=== PATIENT | male | born 1995 | race African-American/Black ===

== ENCOUNTER 2022-02-24 13:18 | Inpatient (IN) | payer OTHER, MEDICAID, SELFPAY ==
--- NOTE | ~2022-02-24 | MR_ITS ---
EXAMINATION: MR lumbar spine wo/w con DATE: 02/27/2022 13:14 INDICATION: Weakness. TECHNIQUE: Magnetic resonance imaging (MRI) of the lumbar spine was performed without and with 15 mL MultiHance intravenous contrast. COMPARISON: Lumbar spine CT 02/24/2022 FINDINGS: There is 9 degrees levocurvature of lumbar spine. Vertebral body heights and intervertebral disc heights are normal. The distal spinal cord signal intensity is normal. The conus medullaris is at L1. There is widespread increased T2-weighted signal intensity and contrast enhancement in the mus culature with edema around the muscles. The following disc levels are specifically discussed: L1-L2 through L3-L4: The disc does not extend beyond the endplate margin. There is no facet joint ost eoarthritis. There is no neural foraminal stenosis. There is no central canal stenosis. L4-L5: The disc does not extend beyond the endplate margin. There is mild bilateral facet joint osteo arthritis. There is no neural foraminal stenosis. There is no central canal stenosis. L5-S1: The disc does not extend beyond the endplate margin. There is mild bilateral facet joint osteo arthritis. There is no neural foraminal stenosis. There is no central canal stenosis. IMPRESSION: 1. Widespread abnormal increased T2-weighted signal intensity and contrast enhancement in the muscula ture, consistent with rhabdomyolysis. Reviewed, dictated and finalized at location A. IMPRESSION: 1. Widespread abnormal increased T2-weighted signal intensity and contrast enha ncement in the musculature, consistent with rhabdomyolysis.
--- NOTE | ~2022-02-24 | XR_ITS ---
EXAMINATION: XR chest 2V DATE: 02/27/2022 13:19 INDICATION: Dysphagia. TECHNIQUE: Frontal and lateral views of the chest were obtained. COMPARISON: Chest 2 views 06/23/2019 FINDINGS: The chest demonstrates clear lungs without pneumonia, pleural effusion, or pneumothorax. Th e heart size is normal. IMPRESSION: 1. No acute cardiopulmonary disease. Reviewed, dictated and finalized at location A.
--- NOTE | ~2022-02-24 | US_ITS ---
EXAMINATION: US venous doppler [facility] DATE: 02/25/2022 09:42 INDICATION: Lower limb edema. TECHNIQUE: Grayscale ultrasound images without and with compression and Doppler ultrasound images of the bilateral lower extremity veins were obtained. COMPARISON: None. FINDINGS: The visualized portions of right common femoral vein, profunda (deep) femoral vein, femoral vein, pop liteal vein, peroneal veins, posterior tibial veins, and greater saphenous vein outflow are patent. The visualized portions of left common femoral vein, profunda femoral vein, femoral vein, popliteal v ein, peroneal veins, posterior tibial veins, and greater saphenous vein outflow are patent. IMPRESSION: 1. No deep venous thrombosis. Reviewed, dictated and finalized at location A.
--- NOTE | ~2022-02-24 | MR_ITS ---
EXAMINATION: MR brain/brain stem wo/w con DATE: 02/27/2022 13:14 INDICATION: Dysphagia. Weakness. TECHNIQUE: Magnetic resonance imaging (MRI) of the brain and brainstem was performed without and with 15 mL MultiHance intravenous contrast. COMPARISON: Head CT 06/23/2019 FINDINGS: There is no intracranial hemorrhage, acute infarction, or abnormal intracranial mass lesion . The ventricles are normal in size. There is mild mucosal thickening in the ethmoid sinuses. The orb its are normal. The mastoid air cells are normal. IMPRESSION: 1. Normal brain. Reviewed, dictated and finalized at location A. IMPRESSION: 1. Normal brain.
--- NOTE | ~2022-02-24 | XR_ITS ---
EXAMINATION: XR barium swallow modified DATE: 02/27/2022 09:40 INDICATION: Dysphagia TECHNIQUE: The patient was given barium-containing material of multiple consistencies to swallow by t lou speech pathologist while I performed fluoroscopy. Dose-area product was 0.665 Gy-cm2. FINDINGS: Oral Stage: Delayed oral transit time Pharyngeal Phase: Reduced laryngeal elevation, reduced tongue base retraction Mild vallecular, piriform sinus and pharyngeal wall residue Laryngeal penetration with all consistencies; no aspiration Cervical/Esophageal Stage: Within functional limits IMPRESSION: Modified esophagram findings as above. Please refer to the speech therapy report for spec ific recommendations. Reviewed, dictated and finalized at Location A. Reviewed, dictated and finalized at location A. IMPRESSION: Modified esophagram findings as above. Please refer to the speech t herapy report for specific recommendations.
--- NOTE | ~2022-02-24 | CT_ITS ---
EXAMINATION: CT cervical spine wo con DATE: 02/24/2022 18:10 INDICATION: Ataxia. TECHNIQUE: Computed tomography (CT) of the cervical spine was performed without intravenous contrast. The dose-length product was 388 mGy-cm. Automated exposure control and iterative reconstruction tech [employer] were employed. COMPARISON: None FINDINGS: Vertebral body heights are maintained. Odontoid process within normal limits. There is norm al cervical alignment. Craniovertebral junction is normal. No significant spinal stenosis. No signifi cant paraspinal soft tissue abnormality. Lung apices are normal. IMPRESSION: 1. No significant abnormality of the cervical spine. Reviewed, dictated and finalized at location A.
--- NOTE | ~2022-02-24 | CT_ITS ---
EXAMINATION: CTA chest PE protocol DATE: 02/25/2022 12:34 INDICATION: Tachycardia TECHNIQUE: Computed tomography angiography (CTA) of the chest was performed with 100 mL Omnipaque-350 intravenous contrast timed to evaluate the pulmonary arteries. Coronal maximum intensity projection 3D-reconstructions were created by the technologist. Automated exposure control and iterative reconst ruction technique were employed. Exam dose: 262.70 mGy-cm total exam DLP. COMPARISON: 06/23/2019 2 view chest FINDINGS: There is diagnostic contrast enhancement of the pulmonary arteries and no apparent pulmonar y embolism. No thoracic aortic aneurysm or dissection. Normal heart size. No pericardial or pleural effusion. No pulmonary infiltrate or consolidation or pulmonary mass lesion. The tracheobronchial tree is paten t. Included skeletal structures are unremarkable. IMPRESSION: No evidence of pulmonary embolism; negative examination Reviewed, dictated and finalized at Location A. Reviewed, dictated and finalized at location A.
--- NOTE | ~2022-02-24 | US_ITS ---
EXAMINATION: US venous doppler [facility] DATE: 02/25/2022 09:42 INDICATION: Upper limb edema. TECHNIQUE: Grayscale ultrasound images without and with compression and Doppler ultrasound images of the bilateral upper extremity veins were obtained. COMPARISON: None. FINDINGS: The visualized portions of the right internal jugular vein, subclavian vein, axillary vein, brachial veins, cephalic vein, radial vein, and ulnar vein are patent. There is thrombus in a branch of right basilic vein. The visualized portions of the left internal jugular vein, subclavian vein, axillary vein, brachial v eins, basilic vein, cephalic vein, radial vein, and ulnar vein are patent. IMPRESSION: 1. No deep venous thrombosis. 2. Superficial vein thrombosis involving a branch of right basilic vein. Reviewed, dictated and finalized at location A.
--- NOTE | ~2022-02-24 | CT_ITS ---
EXAMINATION: CT thoracic lumbar wo con DATE: 02/24/2022 18:10 INDICATION: Ataxia. TECHNIQUE: Computed tomography (CT) of the thoracic and lumbar spine was performed without intravenou s contrast. The dose-length product was 1920.70 mGy-cm. Automated exposure control and iterative kiesha nstruction technique were employed. COMPARISON: None FINDINGS: Thoracic spine: There is mild dextrocurvature of the thoracic spine. Vertebral body are maintained. N o significant disc narrowing. No fracture or traumatic malalignment. No significant spinal stenosis. Visualized lung parenchyma is unremarkable. Surrounding osseous structures are unremarkable. No billy asher soft tissue abnormality. Lumbar spine: There is minimal disc bulging at L4-5 and L5-S1 without significant neural foraminal or central canal stenosis. There is mild disc narrowing at L5-S1. Vertebral body heights are maintained. No fracture or traumatic malalignment. No abnormal epidural fluid collections are identified to suggest epidural abscess. Psoas margins are normal. There is abnormal fluid anterior to the sacrum and coccyx in the p resacral space of uncertain origin. IMPRESSION: 1. Moderate fluid in the presacral space of uncertain origin. 2: Mild degenerative disc disease of the lower lumbar spine. 3: No acute abnormality of the thoracic or lumbar spine. No evidence for epidural abscess. Consider follow-up correlation with MRI with contrast. Reviewed, dictated and finalized at location A. IMPRESSION: 1. Moderate fluid in the presacral space of uncertain origin. 2: Mild degenerative disc disease of the lower lumbar spine. 3: No acute abnormality of the thoracic or lumbar spine. No evidence for epidu ral abscess. Consider follow-up correlation with MRI with contrast.
[2022-02-24 13:31] VITALS: BP 134/77; PULSE 119; RESP 16; TEMP 36.4; O2SAT 99
[2022-02-24 15:00] LABS: Hematocrit 44.1 % (42.0-52.0); Hemoglobin 14.6 g/dL (14.0-18.0); Mean Corpuscular HGB Conc 33.1 g/dl (32-36); Mean Corpuscular Hemoglobin 29.2 pg (26-34); Mean Corpuscular Volume 88.2 fl (80-100); Mean Platelet Volume 9.4 fl (7.4-10.4); Platelet Count Result 381 k/mm3 (150-375); Red Cell Distribution Width 13.4 % (11.5-14.5); White Blood Count 23.2 K/mm3 (4.5-10.0)
[2022-02-24 15:06] LABS: Appearance Urine Clear (Clear); Bilirubin Urine Negative (Negative); Blood Urine Trace-lysed (Negative); Color Urine Yellow (Yellow); Glucose Urine UA Negative (Negative); Ketones Urine Negative (Negative); Leukocyte Esterase Ur Negative LEU/UL (Negative); Nitrate Urine Negative (Negative); Protein Urine 1+ mg/dL (Negative)
[2022-02-24 15:19] LABS: Amphetamine Screen Urine Negative (Negative); Barbiturate Screen Urine Negative (Negative); Benzodiazepines Screen Urine Negative (Negative); Cannabinoid Screen Urine Positive (Negative); Cocaine Screen Urine Negative (Negative); Methadone Screen Urine Negative (Negative); Opiate Screen Urine Negative (Negative); Phencyclidine Screen Urine Negative (Negative)
[2022-02-24 15:22] LABS: WBC Urine 0-3 /hpf
[2022-02-24 15:23] LABS: Add Urine Microscopic? YES
[2022-02-24 15:34] LABS: Band Neutrophils Percent 1 % (0-6); Lymphocytes Absolute Manual 1.39 K/mm3 (1.1-4.5); Monocytes Absolute Manual 1.85 K/mm3 (0.1-0.90); Monocytes Percent Manual 8 % (3-9); Neutrophils Absolute Manual 19.95 K/mm3 (1.3-6.7); Neutrophils Percent Manual 85 % (46-73); Total Cells Counted 100
[2022-02-24 15:35] LABS: Atypical Lymphocytes Present
[2022-02-24 15:50] LABS: Alanine Aminotransferase 533 U/L (6-50); Albumin Level 3.4 g/dL (3.5-5.1); Alkaline Phosphatase 96 U/L (38-126); Anion Gap 4 mmol/L (8-16); Bilirubin,Total 0.5 mg/dL (0.2-1.3); Blood Urea Nitrogen 18 mg/dL (9-20); CRP 3.3 mg/dL (<1.0); Calcium 8.1 mg/dL (8.4-10.2); Carbon Dioxide 30 mmol/L (22-30); Chloride 93 mmol/L (98-107); Estimated CRCL calculation 122 ml/min; Estimated Glomerular Filt Rate > 60; Glucose 109 mg/dL (65-110); Potassium 4.8 mmol/L (3.4-5.0); Sodium 127 mmol/L (137-145)
[2022-02-24 16:31] LABS: Aspartate Amino Transferase 1397 U/L (17-59); Creatine Kinase > 16000 U/L (55-170)
--- NOTE | 2022-02-24 16:40 | ED.GENADULT ---
HPI - General Adult General Chief complaint: Extremity Injury, Lower Stated complaint: swelling to legs, headaches, itching Time Seen by Provider: 02/24/22 14:16 History of Present Illness HPI narrative: 26-year-old male presents emergency room secondary to about a 2-week history of progressive weakness and swelling to both of his lower extremities. Patient states he started having some pain in his lower back about 4 to 5 weeks ago. 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 He is no longer at that job. However his acute symptoms of the weakness and swelling to his leg just been going on for last 2 weeks. He did travel to [facility] in October but had no problems in this all started several months later. He has been seen at a couple of ERs and urgent cares thus far with no definitive diagnosis. Someone put him on some nonsteroidal anti-inflammatory medication as well as some prednisone. Patient is also unable to get an erection for about the last 2 to 3 weeks. He has had progressive swelling to his legs and his very ataxic and has pain when he tries to walk. Also complaining of some mild pain into his neck as well. He denies any IV drugs. He does smoke some occasional marijuana. He had no definitive chills or fevers. Related Data Home Medications Medication Instructions Recorded Confirmed prednisone 20 mg tablet tablet 02/24/22 tramadol 02/24/22 Allergies Allergy/AdvReac Type Severity Reaction Status Date / Time No Known Allergies Allergy Verified 02/24/22 13:33 Review of Systems Review of Systems: CONSTITUTIONAL: Denies fever, chills, or sweats. EYES: Denies visual changes, redness, or discharge. ENT: Denies rhinorrhea, congestion, sore throat, or otalgia. CARDIOVASCULAR: Denies chest pain, palpitations, or edema. RESPIRATORY: Denies cough or dyspnea. GASTROINTESTINAL: Denies abdominal pain, nausea, vomiting, or diarrhea. GENITOURINARY: Denies dysuria or hematuria. SKIN: Denies rash or itching. MUSCULOSKELETAL: Swelling to his lower extremities and difficulty with ambulation NEUROLOGIC: Denies headache, numbness. Occultly with ambulating. PSYCHIATRIC: Denies anxiety or depression. FORMERLY [facility], [facility]–1983 Past Medical History Medical History (Updated 02/24/22 @ 18:34 by Isidro Rodriguez DO) No active medical problems Social History Social History (Updated 02/24/22 @ 17:05 by Isidro Rodriguez DO) Alcohol use details: He used to drink occasionally on weekends but not even consistently then. He has had no alcohol in the last 3 to 4 weeks. He was never heavy drinker. Living arrangements: with family Occupation/Education: unemployed Gender identity (if verbalized by the patient): Male Exam Narrative: APPEARANCE: Well appearing, no pain or distress, well-nourished. Head normocephalic and atraumatic. EYES: PERRLA/EOMI, conjunctivae very clear. NOSE: Normal with no drainage EARS:TMS clear Nataly Lima, with good light reflex. THROAT: Pharynx clear, no exudate. NECK: Supple. No adenopathy, no masses. Some mild tenderness to palpation in the lower cervical region. RESPIRATORY: Airway patent, respirations nonlabored. Clear to auscultation bilaterally, no rales, rhonchi, wheezing. CARDIOVASCULAR: Regular rate and rhythm without murmurs, rubs, or gallops. ABDOMINAL: Soft, nontender, nondistended, no hepatosplenomegaly Musculoskeletal: Moves all extremities. Strength/ROM intact, No calf tenderness. +2 to 3/4 edema to both lower extremities NEURO: Alert. Cranial nerves II through XII intact. Weakness to his lower extremities and ataxic when he tries to walk. SKIN:: Warm, dry. Normal Color PSYCHIATRIC: Normal affect/mood, normal interaction Course Course Emergency Course: Patient has significant laboratory abnormalities. There is concerned that maybe has a spinal cord issues and subsequently I called U at 1650 and discussed with glenda
[2022-02-24] MEDS: SODIUM CHLORIDE 0.9% IV 1,000 ML 999 ML IV CONT (16:49)
--- NOTE | 2022-02-24 17:30 | PM.IMHP ---
H&P: HPI History of Present Illness Date/Time: 02/24/22 17:30 Chief Complaint: Weak, muscle pains, extremity swelling. Narrative: This is a very pleasant and previously healthy 26-year-old male who presented to the emergency department via private vehicle from home with multiple complaints to include weakness, muscle pain, and swelling of the extremities. About 4 or 5 weeks ago he started having some pain in his lower back which he thought was likely due to a muscle strain from doing heavy lifting and turning at his work in a [employer] plant. He has since left that job and has not worked there for at least 3 weeks. His back pain has resolved though over the past 2 weeks he has developed other symptoms including swelling in his upper and lower extremities, muscle aches, and generalized weakness. He has been seen at 2 different hospitals in the last 2 weeks for his symptoms and he was prescribed prescriptions for his symptoms to include gabapentin, cyclobenzaprine, methocarbamol, and prednisone. With further questioning, the prednisone was reportedly prescribed for a pruritic rash on his right arm which has improved. He stopped taking the prednisone 2 days early as it was keeping him awake. Unfortunately his symptoms continue to get worse and in fact he has been staying at his grandmother's house over the past 1 week because he is unable to stay alone. He requires help to even sit up and to stand and walk due to excruciating muscle pain and to some extent weakness as well. His CK was markedly elevated at greater than 16,000 with concomitant elevation in AST and ALT and he is being admitted for further treatment and evaluation of rhabdomyolysis. As above, his previous job was in a hot facility doing manual labor though he has not been at that job for well over 3 weeks. He lifts weights 3 times a week for not more than an hour a day and he has not been exerting himself more than usual. He has not had any recent travel, the last time he was out of town was back in October when he went to [place]. He is unaware if he has had any recent mosquito or tick bites. He has no history of eczema and has not noticed any significant rash aside from that on the right forearm though on exam he had some hyperpigmented areas on the trunk where he admitted to scratching due to pruritus. He has not had any recent illnesses, exposure, or trauma. No personal or family history of rhabdomyolysis, muscular dystrophies, myositis, autoimmune diseases, or the like. He uses cannabis on occasion but denies other substance use including chnu-[id number] supplementation, anabolic steroids, high-dose caffeine, etc.. Review of Systems Review of Systems: Twelve systems were reviewed. No fever, chills, or sweats. He denies sinus congestion and sore throat. No headache or neck ache. No chest pain or shortness of breath. No cough. No nausea, vomiting, or diarrhea. No dysuria or hematuria. No bowel or bladder dysfunction. No saddle anesthesia. No current back pain. He has not been able to get an erection for approximately 3 weeks. Except as documented, all other systems were reviewed and are negative. [facility] Past Medical History Medical History (Updated 02/24/22 @ 22:34 by Airam Beltran PA-C) Healthy adult male Surgical History Surgical History (Updated 02/24/22 @ 22:25 by Airam Beltran PA-C) No history of previous surgery Family History Family History Grandparent Chronic obstructive pulmonary disease Social History Social History (Updated 02/24/22 @ 22:27 by Airam Beltran PA-C) Social History: Surrogate decision maker: Sherri Alvarez, grandmother. Code status: Full code. Smoking status: Never smoker Alcohol intake: never Alcohol use details: He used to drink occasionally on weekends but not even consistently then. He has had no alcohol in the last 3 to 4 weeks. He was never heavy drinker. Substance use
[2022-02-24] MEDS: SODIUM BICARBONATE 8.4% 100 MEQ in DEXTROSE 5% 1,000 ML 1,000 ML 50 MEQ IV CONT (18:38)
[2022-02-24 18:40] LABS: Lactic Acid Reflex 1.5 mmol/L (0.7-2.0)
[2022-02-24 18:45] VITALS: BP 145/75; PULSE 100; RESP 18; O2SAT 98
[2022-02-24 18:59] LABS: D Dimer 8.54 ug/mL (<0.48)
[2022-02-24 19:29] VITALS: BP 124/64; PULSE 102; RESP 18; O2SAT 99
[2022-02-24 21:38] VITALS: BMI 26.0
[2022-02-24 22:00] VITALS: BP 130/77; PULSE 120; RESP 18; TEMP 37.1; O2SAT 100
[2022-02-24 22:17] LABS: Erythrocyte Sedimentation Rate 4 mm/hr (0-20)
[2022-02-24 22:18] LABS: Hepatitis B Surface Antigen Negative (Negative)
--- NOTE | 2022-02-24 22:19 | ADMGEN ---
This patient, Shemar Ga, was admitted to Medical Room 346-01. Patient/family oriented to hospital policies and general routines including ID bracelet, bed and alarms, visiting hours, pain management, procedures, bathroom and other care routines, personal items, smoking policy, room service/diet, and visiting hours. Information on how to activate the Rapid Response Team has been discussed. Patient/Family are encouraged to report perceived risks to care and to ask questions if they do not understand what they are told or what they should do.
[2022-02-24 22:22] LABS: Anion Gap 3 mmol/L (8-16); Blood Urea Nitrogen 17 mg/dL (9-20); Calcium 8.1 mg/dL (8.4-10.2); Carbon Dioxide 31 mmol/L (22-30); Chloride 93 mmol/L (98-107); Creatine Kinase > 16000 U/L (55-170); Estimated CRCL calculation 140 ml/min; Estimated Glomerular Filt Rate > 60; Glucose 120 mg/dL (65-110); Lactate Dehydrogenase 4809 U/L (313-618); Potassium 4.2 mmol/L (3.4-5.0); Sodium 127 mmol/L (137-145)
[2022-02-24 22:23] LABS: HAV RESULT Negative (Negative); Hepatitis B Core IgM Result Negative (Negative)
[2022-02-24 22:35] LABS: Hepatitis C Virus Antibody Negative (Negative)
[2022-02-24 22:38] VITALS: O2SAT 96
[2022-02-24] MEDS: SODIUM CHLORIDE 0.9% IV 1,000 ML 200 ML IV CONT (23:22)
[2022-02-25 00:40] LABS: Creatinine Urine 112.3 mg/dL
[2022-02-25 00:43] LABS: Sodium Urine Random 9 meq/L
[2022-02-25] MEDS: SODIUM CHLORIDE 0.9% IV 1,000 ML 200 ML IV CONT ×3 (05:06→23:48)
[2022-02-25 05:53] LABS: Basophils Absolute Auto 0.1 K/mm3 (0.0-0.1); Basophils Percent Auto 0.4 % (0.2-1.2); Eosinophils Absolute Auto 0.4 K/mm3 (0-0.3); Eosinophils Percent Auto 2.6 % (0-4.4); Hematocrit 34.5 % (42.0-52.0); Hemoglobin 11.5 g/dL (14.0-18.0); Immature Granulocyte Absolute 0.23 K/mm3 (0.00-0.031); Immature Granulocyte Percent A 1.7 % (0-0.5); Lymphocytes Absolute Auto 1.48 K/mm3 (0.9-3.2); Lymphocytes Percent Auto 10.6 % (18.3-44.2); Mean Corpuscular HGB Conc 33.3 g/dl (32-36); Mean Corpuscular Hemoglobin 29.3 pg (26-34); Mean Platelet Volume 9.5 fl (7.4-10.4); Monocytes Absolute Auto 1.6 K/mm3 (0.1-0.6); Monocytes Percent Auto 11.6 % (2.6-8.5); Neutrophils Absolute Auto 10.2 K/mm3 (1.3-6.7); Neutrophils Percent Auto 73.1 % (45.5-73.1); Platelet Count Result 324 k/mm3 (150-375); Red Blood Count 3.92 M/mm3 (4.6-6.20); Red Cell Distribution Width 13.2 % (11.5-14.5); White Blood Count 13.9 K/mm3 (4.5-10.0)
[2022-02-25 06:00] VITALS: BP 110/49; PULSE 119; RESP 18; TEMP 37.2; O2SAT 97
[2022-02-25 06:08] LABS: Alanine Aminotransferase 389 U/L (6-50); Albumin Level 2.6 g/dL (3.5-5.1); Alkaline Phosphatase 72 U/L (38-126); Anion Gap 2 mmol/L (8-16); Bilirubin,Total 0.3 mg/dL (0.2-1.3); Blood Urea Nitrogen 22 mg/dL (9-20); Calcium 7.3 mg/dL (8.4-10.2); Carbon Dioxide 28 mmol/L (22-30); Chloride 98 mmol/L (98-107); Estimated CRCL calculation 140 ml/min; Estimated Glomerular Filt Rate > 60; Glucose 101 mg/dL (65-110); Phosphorus 4.1 mg/dL (2.5-4.5); Potassium 3.7 mmol/L (3.4-5.0); Sodium 128 mmol/L (137-145)
[2022-02-25 06:56] LABS: Creatine Kinase > 16000 U/L (55-170)
[2022-02-25 08:14] LABS: Aspartate Amino Transferase 1211 U/L (17-59)
[2022-02-25 13:05] LABS: HIV 1/2 Ab P24 Ag Result Negative (Negative)
[2022-02-25 14:13] VITALS: BP 130/71; PULSE 119; RESP 18; TEMP 36.8; O2SAT 99
[2022-02-25 14:51] VITALS: O2SAT 98
[2022-02-25] MEDS: diphenhydrAMINE HCl INJ 50 MG/ML VIAL 25 MG IV PUSH (15:38)
--- NOTE | 2022-02-25 16:19 | PM.IMPN ---
Progress Note: A&P Assessment and Plan (1) Rhabdomyolysis: Code(s): M62.82 - Rhabdomyolysis Status: Acute Assessment and Plan: Precipitating etiology not entirely clear. 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 He has not had any direct trauma, significant heat exposure, or illnesses. He is on no medications at home on a consistent basis and he denies cxox-ask-cruqbqg supplementation, illicit substance use aside from marijuana smoking. No known personal or family history of mitochondrial or muscle disorders, rhabdomyolysis, or the like. Differential includes rhabdomyolysis, Guillain Galvin, and inflammatory myopathy. CRUZ pending CK persistently elevated after fluid resuscitation at> 16,000. AST 1211 ALT 389 LDH 4809 CRP 3.3 Ca 7.3 D-Dimer 8.54. HIV negative PRP pending BUN/Cr 22/0.6. Pt is producing clear yellow urine. Urine Myoglobin, osmolality, pending. FeNa 9 (2) Leukocytosis: Code(s): D72.829 - Elevated white blood cell count, unspecified Status: Acute Assessment and Plan: He gives no history to suggest underlying infection, likely these are elevated due to recent steroid use. Downtrending to 13.9 today. Patient remains afebrile, no concerning history or physical exam findings to suggest endocarditis. Will check monospot test to rule out infectious [place]. (3) Transaminitis: Code(s): R74.01 - Elevation of levels of liver transaminase levels Status: Acute Assessment and Plan: Secondary to rhabdomyolysis. Hepatitis panel negative. Abdominal exam normal. (4) Hyponatremia: Code(s): E87.1 - Hypo-osmolality and hyponatremia Status: Acute Assessment and Plan: TSH 1.29 Sodium 128 today. Continuing NS IVF resuscitation. Continue to monitory. FeNa 9 (5) Muscle weakness: Code(s): M62.81 - Muscle weakness (generalized) Status: Acute Assessment and Plan: Weakness is most evident in hip flexors. He had a back injury over a month ago though symptoms have resolved and his neurologic exam is otherwise unremarkable. Again this is concerning for possible inflammatory myopathy though it is difficult to say whether not the weakness is due to the excruciating pain he feels when flexing the muscles. Initiate fall precautions. Differential includes rhabdo vs. guillain barre vs inflammatory myositis. Consider muscle biopsy and rheumatology consultation. CRUZ pending. (6) Rash: Code(s): R21 - Rash and other nonspecific skin eruption Status: Acute Assessment and Plan: Patient with diffuse rash as noted on physical exam with diffuse pruritis. Benadryl and famotidine given PRN for itching. CRUZ pending. (7) Tachycardia: Code(s): R00.0 - Tachycardia, unspecified Status: Acute Assessment and Plan: Patient has been tachycardic in the low 1teens during this admission. Venous duplex found superficial vein thrombosis involving a branch of right basilic vein. No lower extremity DVT noted. Patient saturating well on RA at this time. CTA chest showed no PE. Plan Pending CRUZ, SCDs on hold due to pain, Lovenox on hold due to possible need for muscle biopsy in near future. I discussed this case with my collaborating physician, Dr. Peters, and plan was developed in conjunction with this consultation. Subjective Date/time seen: 02/25/22 16:19 Pleasant 26 year old male with no significant past medical history who presents for 3-4 weeks of rash, pruritis and progressive muscle aches and weakness. 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 He denies excessive working out, trauma, or prolonged immobility, other than what is happening with his mu
[2022-02-25] MEDS: CALCIUM CARBONATE (OSCAL) 500 MG TABLET PO (17:19)
[2022-02-25 18:11] LABS: Monoscreen Negative (Negative); Negative Monotest Control Negative (Negative); Positive Monotest Control Positive (Positive)
[2022-02-25 18:39] LABS: Creatine Kinase > 16000 U/L (55-170)
[2022-02-25] MEDS: FAMOTIDINE 20 MG/2 ML VIAL IV PUSH (20:29)
[2022-02-25 21:36] VITALS: BP 124/64; PULSE 119; RESP 16; TEMP 36.8; O2SAT 100
[2022-02-26] MEDS: SODIUM CHLORIDE 0.9% IV 1,000 ML 200 ML IV CONT ×5 (01:10→21:08)
[2022-02-26] MEDS: diphenhydrAMINE HCl INJ 50 MG/ML VIAL 25 MG IV PUSH (02:08)
[2022-02-26 05:05] VITALS: BP 124/58; PULSE 120; RESP 16; TEMP 37.2; O2SAT 100
[2022-02-26 05:40] LABS: Basophils Percent Auto 0.3 % (0.2-1.2); Eosinophils Absolute Auto 0.5 K/mm3 (0-0.3); Eosinophils Percent Auto 4.2 % (0-4.4); Hemoglobin 11.4 g/dL (14.0-18.0); Immature Granulocyte Absolute 0.14 K/mm3 (0.00-0.031); Immature Granulocyte Percent A 1.1 % (0-0.5); Lymphocytes Absolute Auto 1.32 K/mm3 (0.9-3.2); Lymphocytes Percent Auto 10.5 % (18.3-44.2); Mean Corpuscular HGB Conc 33.5 g/dl (32-36); Mean Corpuscular Hemoglobin 29.4 pg (26-34); Mean Corpuscular Volume 87.6 fl (80-100); Mean Platelet Volume 9.2 fl (7.4-10.4); Monocytes Absolute Auto 1.5 K/mm3 (0.1-0.6); Monocytes Percent Auto 12.3 % (2.6-8.5); Neutrophils Percent Auto 71.6 % (45.5-73.1); Platelet Count Result 301 k/mm3 (150-375); Red Blood Count 3.88 M/mm3 (4.6-6.20); Red Cell Distribution Width 13.5 % (11.5-14.5); White Blood Count 12.6 K/mm3 (4.5-10.0)
[2022-02-26 06:02] LABS: Alanine Aminotransferase 320 U/L (6-50); Albumin Level 2.4 g/dL (3.5-5.1); Alkaline Phosphatase 66 U/L (38-126); Anion Gap -2 mmol/L (8-16); Bilirubin,Total 0.4 mg/dL (0.2-1.3); Blood Urea Nitrogen 13 mg/dL (9-20); Calcium 7.3 mg/dL (8.4-10.2); Carbon Dioxide 29 mmol/L (22-30); Chloride 104 mmol/L (98-107); Estimated CRCL calculation 140 ml/min; Estimated Glomerular Filt Rate > 60; Glucose 104 mg/dL (65-110); Potassium 3.7 mmol/L (3.4-5.0); Sodium 131 mmol/L (137-145)
[2022-02-26 07:38] LABS: Aspartate Amino Transferase 952 U/L (17-59)
[2022-02-26 07:51] LABS: Rapid Plasma Reagin Non-Reactive (NonReactive)
[2022-02-26 08:09] VITALS: BP 149/65; PULSE 125; RESP 18; TEMP 36.8; O2SAT 100
[2022-02-26] MEDS: FAMOTIDINE 20 MG/2 ML VIAL IV PUSH ×2 (08:33→21:07)
--- NOTE | 2022-02-26 11:24 | PM.IMPN ---
Progress Note: A&P Assessment and Plan (1) Dysphagia: Code(s): R13.10 - Dysphagia, unspecified Status: Acute Assessment and Plan: Patient with acute onset of difficulty swallowing. Consider globus since he was able to consume the majority of his cereal. He is tender anteriorly in the neck but no painful swallowing to suggest a esophagitis. Will continue the Pepcid. Blood speech therapy evaluate the patient. No erythema noted but will check rapid strep swab. (2) Rhabdomyolysis: Code(s): M62.82 - Rhabdomyolysis Status: Acute Assessment and Plan: Patient presents with complaints of weakness and muscle pain and found to have rhabdomyolysis. Etiology is unclear but consider related to weightlifting and/or working at the [employer] and/or related to recent medications. Suspect probably a combination of events. No trauma, significant illness, tick bites, known toxin exposure, or other specific exposures to explain the etiology of his rhabdomyolysis. Total CK greater than 16 K. liver enzymes are trending downward. Sodium improving which also speaks to the fact that his CK probably is trending downward. Continue IV fluids. Will consider Lasix tomorrow. (3) Leukocytosis: Code(s): D72.829 - Elevated white blood cell count, unspecified Status: Acute Assessment and Plan: White cell count was 23K on admission. He he had been using steroids recently which probably explains some of this. On repeat, white count has trended downward. He is not on antibiotics. Will continue to monitor. There is no evidence of infectious process. (4) Transaminitis: Code(s): R74.01 - Elevation of levels of liver transaminase levels Status: Acute Assessment and Plan: Secondary to rhabdomyolysis. Hepatitis panel negative. Abdominal exam normal. Levels are trending downward. (5) Hyponatremia: Code(s): E87.1 - Hypo-osmolality and hyponatremia Status: Acute Assessment and Plan: Na 127 on admission. Probably osmotic related to the elevated creatinine kinase. He has been started on IV fluids as mentioned above. Sodium is slowly climbing related to the IV fluids but also as his creatinine kinase trends downward. This should continue to correct (6) Muscle weakness: Code(s): M62.81 - Muscle weakness (generalized) Status: Acute Assessment and Plan: Patient with diffuse weakness but worse than his hip flexors. He had a back injury over a month ago though symptoms have resolved. Patient is able to walk to the bathroom with only using the IV pole for support. Encouraged him to be out of bed much as possible. This is felt all related to his rhabdomyolysis. Inflammatory myopathy is consideration although does not cause this type of significant elevation of his creatinine kinase. Continue to follow. (7) Rash: Code(s): R21 - Rash and other nonspecific skin eruption Status: Acute Assessment and Plan: Patient with diffuse rash as noted on physical exam with diffuse pruritis. Benadryl given PRN for itching. Continue Pepcid as well. Lupus remains on the differential. CRUZ pending. (8) Tachycardia: Code(s): R00.0 - Tachycardia, unspecified Status: Acute Assessment and Plan: Patient has been tachycardic 110-120 since admission. Venous duplex found superficial vein thrombosis involving a branch of right basilic vein. No lower extremity DVT noted. CTA chest showed no PE. TSH is normal. Continue to monitor for now. Plan DVT prophylaxis: SCDs Code status: Full Subjective Date/time seen: 02/26/22 11:24 Interval history: 26yo healthy male here for muscle aches found to have rhabdomyolysis. Patient had dry mouth today. He was able to eat a bowl of cereal but toward the end he had trouble swallowing. He then went to eat pancakes and had trouble swallowing this as well. He is
[2022-02-26 14:00] VITALS: BP 121/55; PULSE 119; RESP 18; TEMP 36.9; O2SAT 98
[2022-02-26 15:26] VITALS: O2SAT 98
--- NOTE | 2022-02-26 16:32 | PCSTNOTE ---
Please refer to the Bedside Swallow Evaluation in the EMR. Please note, silent aspiration cannot be ruled out at bedside.
[2022-02-26 19:28] VITALS: PULSE 119; RESP 18; O2SAT 98
[2022-02-26 19:52] LABS: Creatine Kinase > 16000 U/L (55-170)
[2022-02-26 20:17] VITALS: BP 130/66; PULSE 119; RESP 18; TEMP 36.8; O2SAT 99
[2022-02-27] MEDS: SODIUM CHLORIDE 0.9% IV 1,000 ML 200 ML IV CONT ×4 (02:17→20:35)
[2022-02-27 04:44] VITALS: BP 121/62; PULSE 111; RESP 18; TEMP 36.7; O2SAT 98
[2022-02-27 06:22] LABS: Basophils Percent Auto 0.3 % (0.2-1.2); Eosinophils Absolute Auto 0.8 K/mm3 (0-0.3); Eosinophils Percent Auto 6.4 % (0-4.4); Hematocrit 33.9 % (42.0-52.0); Hemoglobin 11.3 g/dL (14.0-18.0); Immature Granulocyte Absolute 0.16 K/mm3 (0.00-0.031); Immature Granulocyte Percent A 1.2 % (0-0.5); Lymphocytes Absolute Auto 1.29 K/mm3 (0.9-3.2); Lymphocytes Percent Auto 9.9 % (18.3-44.2); Mean Corpuscular HGB Conc 33.3 g/dl (32-36); Mean Corpuscular Hemoglobin 29.7 pg (26-34); Mean Platelet Volume 9.6 fl (7.4-10.4); Monocytes Absolute Auto 1.5 K/mm3 (0.1-0.6); Monocytes Percent Auto 11.1 % (2.6-8.5); Neutrophils Absolute Auto 9.3 K/mm3 (1.3-6.7); Neutrophils Percent Auto 71.1 % (45.5-73.1); Platelet Count Result 304 k/mm3 (150-375); Red Blood Count 3.81 M/mm3 (4.6-6.20); Red Cell Distribution Width 13.6 % (11.5-14.5)
[2022-02-27 06:55] LABS: Alanine Aminotransferase 294 U/L (6-50); Albumin Level 2.4 g/dL (3.5-5.1); Alkaline Phosphatase 63 U/L (38-126); Anion Gap 2 mmol/L (8-16); Bilirubin,Total 0.5 mg/dL (0.2-1.3); Blood Urea Nitrogen 9 mg/dL (9-20); Calcium 7.1 mg/dL (8.4-10.2); Carbon Dioxide 26 mmol/L (22-30); Chloride 106 mmol/L (98-107); Estimated CRCL calculation 140 ml/min; Estimated Glomerular Filt Rate > 60; Glucose 95 mg/dL (65-110); Potassium 3.8 mmol/L (3.4-5.0); Sodium 134 mmol/L (137-145)
[2022-02-27 06:58] LABS: Aspartate Amino Transferase 842 U/L (17-59); Creatine Kinase > 16000 U/L (55-170)
[2022-02-27] MEDS: FAMOTIDINE 20 MG/2 ML VIAL IV PUSH ×2 (08:43→20:35)
[2022-02-27] MEDS: FUROSEMIDE INJ 40 MG/4 ML VIAL IV PUSH ×2 (08:44→16:39)
[2022-02-27] MEDS: diphenhydrAMINE HCl INJ 50 MG/ML VIAL 25 MG IV PUSH (09:00)
--- NOTE | 2022-02-27 11:35 | PM.IMPN ---
Progress Note: A&P Assessment and Plan (1) Dysphagia: Code(s): R13.10 - Dysphagia, unspecified Status: Acute Assessment and Plan: Patient with acute onset of difficulty swallowing. Bedside with concern with recommendation of chin tuck; MBS ordered MBS showing reduced laryngeal elevation and reduced tongue retraction with laryngeal penetration but no aspiration. He did receive Benadryl dose prior to the procedure. Check Brain MRI. Neuro consult NPO for now. (2) Rhabdomyolysis: Code(s): M62.82 - Rhabdomyolysis Status: Acute Assessment and Plan: Patient presents with complaints of weakness and muscle pain and found to have rhabdomyolysis. CRP 3.3. LDH 4800. Lactic acid 1.5. Etiology unclear but consider weightlifting and/or working at the [employer] and/or related to recent medications. No trauma, significant illness, tick bites, known toxin exposure, or other specific exposures Was on IV fluids with bicarb but became too alkalotic; Just on NS IV fluids now Total CK >16K and unchanged AST/ALT elevated and are trending down. Continue IV fluids. Will add Lasix (3) Leukocytosis: Code(s): D72.829 - Elevated white blood cell count, unspecified Status: Acute Assessment and Plan: White cell count was 23K on admission. Probably related to steroid use Repeat WBC 13 now There is no evidence of infectious process. He is not on antibiotics. Will continue to monitor. (4) Transaminitis: Code(s): R74.01 - Elevation of levels of liver transaminase levels Status: Acute Assessment and Plan: Secondary to rhabdomyolysis. Hepatitis panel negative. Abdominal exam normal. Levels are trending downward. (5) Hyponatremia: Code(s): E87.1 - Hypo-osmolality and hyponatremia Status: Acute Assessment and Plan: Na 127 on admission. Probably osmotic related to the elevated creatinine kinase. He was started on IV fluids. Sodium improving related to the IV fluids but also as his creatinine kinase trends downward. (6) Muscle weakness: Code(s): M62.81 - Muscle weakness (generalized) Status: Acute Assessment and Plan: Patient with diffuse weakness but worse than his hip flexors. He had a back injury over a month ago though symptoms have resolved. Weak in bed but able to stand and walk CT Thoracic and lumbar showing moderate fluid in the presacral space, mild lumbar DDD. [place] related to his rhabdomyolysis. Will add Lumbar MR to assess fluid collection (7) Rash: Code(s): R21 - Rash and other nonspecific skin eruption Status: Acute Assessment and Plan: Patient with diffuse rash as noted on physical exam with diffuse pruritis. Benadryl given PRN for itching. Continue Pepcid as well. Lupus remains on the differential. CRUZ pending. Stop Bendaryl since may have contributed to his dysphagia (8) Tachycardia: Code(s): R00.0 - Tachycardia, unspecified Status: Acute Assessment and Plan: Patient has been tachycardic 110-120 since admission. D-dimer 8.5. LE venous doppler negative for DVT UE venous doppler negative for DVT but shows superficial vein thrombosis involving a branch of right basilic vein CTA chest negative for PE. No other concerning findings. TSH is normal. Continue to monitor for now. Plan DVT prophylaxis: Refusing SCDs; Add Lovenox Code status: Full Subjective Date/time seen: 02/27/22 11:35 Interval history: 26yo healthy male here for muscle aches found to have rhabdomyolysis. Slept well last night. Did complain of some mild sore throat last night. His legs feel more stiff today. Denies diplopia or any other eye complaints. Patient had modified barium swallows morning and was called by speech therapy who had concerns. Patient was somnolent for the procedure possibly related to the fact he received Benadryl at
--- NOTE | 2022-02-27 12:54 | PCSTNOTE ---
Please refer to the Modified Barium Swallow Evaluation in the EMR.
[2022-02-27] MEDS: ENOXAPARIN 40 MG/0.4 ML SYRINGE SUB-Q (13:53)
[2022-02-27 14:00] VITALS: BP 129/66; PULSE 110; RESP 18; TEMP 36.6; O2SAT 99
[2022-02-27 20:20] VITALS: BP 127/66; PULSE 111; RESP 18; TEMP 36.6; O2SAT 99
--- NOTE | 2022-02-28 | ECHO_ITS ---
Patient Info Name: Shemar Ga Age: 26 years : 1995 Gender: Male Ht: 65 in Wt: 163 lbs BSA: 1.86 m2 HR: 116 bpm BP: 140 / 72 mmHg Heart Rhythm: Sinus Rhythm, Tachycardia Exam Date: 02/28/2022 1:04 PM Exam Location: [facility] Patient Status: Inpatient Admit Date: 02/24/2022 Staff Ordering Physician: Titus Peters MD Welfare Specialist: Phuc Thurman, RUTH, RT Attending Provider: Reyna Deutsch PA-C Exam Type: CA echo doppler color flow Study Info Indications R00.0 - Tachycardia, unspecified Complete two-dimensional, color flow and Doppler transthoracic echocardiogram is performed. Strain analysis performed. Summary 1. Complete two-dimensional, color flow and Doppler transthoracic echocardiogram is performed. 2. Left ventricular chamber dimension is normal. 3. Left ventricular systolic function is hyperdynamic, estimated at >70%. 4. There is no increased left ventricular wall thickness. 5. The left ventricular diastolic function is normal. 6. Global longitudinal strain is mildly elevated at -17 %. 7. Right atrial chamber dimension is mildly enlarged. 8. There is no aortic valve stenosis. 9. There is no mitral valve regurgitation. 10. There is trace tricuspid valve regurgitation. 11. Mild pulmonary hypertension, estimated pulmonary arterial systolic pressure is 36 mmHg. Left Ventricle Left ventricular chamber dimension is normal. Left ventricular systolic function is hyperdynamic, estimated at >70%. There is no increased left ventricular wall thickness. The left ventricular diastolic function is normal. Global longitudinal strain is mildly elevated at -17 %. Right Ventricle Right ventricular chamber dimension is normal. Right ventricular systolic function is normal. Left Atria Left atrial chamber dimension is normal. Right Atria Right atrial chamber dimension is mildly enlarged. Aortic Valve The aortic valve is probable trileaflet. There is no aortic valve stenosis. There is no aortic valve regurgitation. Pulmonic Valve The pulmonic valve is not well visualized. Mitral Valve The mitral valve has normal leaflets. There is no mitral valve regurgitation. Tricuspid Valve The tricuspid valve leaflets are normal. There is trace tricuspid valve regurgitation. Mild pulmonary hypertension, estimated pulmonary arterial systolic pressure is 36 mmHg. Pericardium/Pleural The pericardium appears normal. There is no pericardial effusion. Inferior Vena Cava Normal inferior vena cava with >50% collapse upon inspiration consistent with normal right atrial pressure, 5 mmHg. Aorta The aortic root size at the sinus of Valsalva is normal. Left Ventricular Outflow Tract Name Value Normal LVOT 2D LVOT Diameter 2.1 cm LVOT Doppler LVOT Peak Gradient 6 mmHg LVOT Mean Gradient 3 mmHg LVOT VTI 20 cm LVOT VTI/AV VTI Ratio 1.0 LVOT Stroke Volume 69 ml LVOT CO 8.3 l/min LV
[2022-02-28] MEDS: SODIUM CHLORIDE 0.9% IV 1,000 ML 200 ML IV CONT ×3 (00:22→08:47)
[2022-02-28 05:36] VITALS: BP 140/72; PULSE 116; RESP 18; TEMP 36.6; O2SAT 99
[2022-02-28 05:54] LABS: Basophils Absolute Auto 0.1 K/mm3 (0.0-0.1); Basophils Percent Auto 0.5 % (0.2-1.2); Eosinophils Percent Auto 6.8 % (0-4.4); Hematocrit 36.6 % (42.0-52.0); Hemoglobin 12.1 g/dL (14.0-18.0); Immature Granulocyte Absolute 0.26 K/mm3 (0.00-0.031); Immature Granulocyte Percent A 1.8 % (0-0.5); Lymphocytes Absolute Auto 1.51 K/mm3 (0.9-3.2); Lymphocytes Percent Auto 10.2 % (18.3-44.2); Mean Corpuscular HGB Conc 33.1 g/dl (32-36); Mean Corpuscular Hemoglobin 29.3 pg (26-34); Mean Corpuscular Volume 88.6 fl (80-100); Mean Platelet Volume 9.2 fl (7.4-10.4); Monocytes Absolute Auto 1.8 K/mm3 (0.1-0.6); Monocytes Percent Auto 11.8 % (2.6-8.5); Neutrophils Absolute Auto 10.2 K/mm3 (1.3-6.7); Neutrophils Percent Auto 68.9 % (45.5-73.1); Platelet Count Result 345 k/mm3 (150-375); Red Blood Count 4.13 M/mm3 (4.6-6.20); Red Cell Distribution Width 13.6 % (11.5-14.5); White Blood Count 14.8 K/mm3 (4.5-10.0)
[2022-02-28 06:39] LABS: Alanine Aminotransferase 303 U/L (6-50); Albumin Level 2.9 g/dL (3.5-5.1); Alkaline Phosphatase 71 U/L (38-126); Anion Gap 3 mmol/L (8-16); Bilirubin,Total 0.5 mg/dL (0.2-1.3); Blood Urea Nitrogen 11 mg/dL (9-20); Calcium 7.7 mg/dL (8.4-10.2); Carbon Dioxide 26 mmol/L (22-30); Chloride 104 mmol/L (98-107); Creatine Kinase 14521 U/L (55-170); Estimated CRCL calculation 165 ml/min; Estimated Glomerular Filt Rate > 60; Glucose 88 mg/dL (65-110); Potassium 3.6 mmol/L (3.4-5.0); Sodium 133 mmol/L (137-145)
[2022-02-28 07:53] LABS: Aspartate Amino Transferase 838 U/L (17-59)
[2022-02-28] MEDS: FUROSEMIDE INJ 40 MG/4 ML VIAL IV PUSH ×2 (08:47→17:27)
[2022-02-28] MEDS: FAMOTIDINE 20 MG/2 ML VIAL IV PUSH ×2 (08:47→21:15)
[2022-02-28] MEDS: ENOXAPARIN 40 MG/0.4 ML SYRINGE SUB-Q (08:47)
[2022-02-28 12:03] LABS: Osmolality, Urine 861 mOsm/kg (50-1200)
--- NOTE | 2022-02-28 12:24 | PM.IMPN ---
Progress Note: A&P Assessment and Plan (1) Dysphagia: Code(s): R13.10 - Dysphagia, unspecified Status: Acute Assessment and Plan: Patient with acute onset of difficulty swallowing.? Bedside with concern with recommendation of chin tuck; MBS ordered MBS showing reduced laryngeal elevation and reduced tongue retraction with laryngeal penetration but no aspiration. He did receive Benadryl dose prior to the procedure. Brain MRI normal. Lumbar MRI also without concern but does show the rhabdo. Neuro consult Patient did much better with swallowing this morning. ST recommended level 6 diet with mildly thickened liquids. Diet was started today. Continue therapy. (2) Rhabdomyolysis: Code(s): M62.82 - Rhabdomyolysis Status: Acute Assessment and Plan: Patient presents with complaints of weakness and muscle pain and found to have rhabdomyolysis.? CRP 3.3. LDH 4800. Lactic acid 1.5. Etiology unclear but consider weightlifting and/or working at the [employer] and/or related to recent medications. No trauma, significant illness, tick bites, known toxin exposure, or other specific exposures Was on IV fluids with bicarb but became too alkalotic; Just on NS IV fluids now Total CK >16K and improved today AST/ALT elevated and are flat today Continue IV fluids and Lasix Will decrease IV fluid rate. (3) Leukocytosis: Code(s): D72.829 - Elevated white blood cell count, unspecified Status: Acute Assessment and Plan: White cell count was 23K on admission.? Probably related to steroid use Repeat WBC 14 There is no evidence of infectious process. He is not on antibiotics.? Will continue to monitor.? (4) Transaminitis: Code(s): R74.01 - Elevation of levels of liver transaminase levels Status: Acute Assessment and Plan: Secondary to rhabdomyolysis.? Hepatitis panel negative. HIV negative Abdominal exam normal.? Levels are flat today (5) Hyponatremia: Code(s): E87.1 - Hypo-osmolality and hyponatremia Status: Acute Assessment and Plan: Na 127 on admission. Probably osmotic related to the elevated creatinine kinase.? He was started on IV fluids.? Sodium improving related to the IV fluids and that his creatinine kinase trends downward. (6) Muscle weakness: Code(s): M62.81 - Muscle weakness (generalized) Status: Acute Assessment and Plan: Patient with diffuse weakness but worse than his hip flexors. He had a back injury over a month ago though symptoms have resolved.? Able to stand and walk CT Thoracic and lumbar showing?moderate fluid in the presacral space, mild lumbar DDD. [place] related to his rhabdomyolysis. Lumbar MR showing no acute findings except does confirm the rhabdomyolysis. Check acetylcholine receptor antibody. (7) Rash: Code(s): R21 - Rash and other nonspecific skin eruption Status: Acute Assessment and Plan: Patient with diffuse rash as noted on physical exam with diffuse pruritis.? Benadryl was given PRN for itching but stopped due to somnolence? Continue Pepcid Lupus remains on the differential.? CRUZ pending. (8) Tachycardia: Code(s): R00.0 - Tachycardia, unspecified Status: Acute Assessment and Plan: Patient has been tachycardic 110-120 since admission.? D-dimer 8.5. LE venous doppler negative for DVT UE venous doppler negative for DVT but shows superficial vein thrombosis involving a branch of right basilic vein CTA chest negative for PE.? No other concerning findings. TSH is normal.? Check Echo Continue to monitor for now. Plan DVT prophylaxis: Refusing SCDs; Lovenox added Code status: Full Subjective Date/time seen: 02/28/22 12:24 Interval history: 26yo healthy male here for muscle aches found to have rhabdomyolysis. No issues overnight. He has been up walking to the bathroom and took a shower today. He states his leg ed
[2022-02-28 14:00] VITALS: BP 126/70; PULSE 120; RESP 18; TEMP 36.8; O2SAT 99
--- NOTE | 2022-02-28 15:46 | PCCCNOTE ---
On 02/28/22, the student, Paulina Galvez, provided care and completed [facility] documentation on this patient. I have reviewed the student's documentation and agree with the findings.
[2022-02-28 17:03] VITALS: O2SAT 98
[2022-02-28] MEDS: SODIUM CHLORIDE 0.9% IV 1,000 ML 150 ML IV CONT (21:19)
[2022-02-28 21:39] VITALS: BP 126/72; PULSE 120; RESP 18; TEMP 36.5; O2SAT 100
[2022-02-28 22:10] VITALS: O2SAT 98
[2022-03-01] MEDS: SODIUM CHLORIDE 0.9% IV 1,000 ML 150 ML IV CONT ×3 (01:47→21:39)
[2022-03-01 05:59] LABS: Basophils Absolute Auto 0.1 K/mm3 (0.0-0.1); Basophils Percent Auto 0.5 % (0.2-1.2); Eosinophils Absolute Auto 0.9 K/mm3 (0-0.3); Eosinophils Percent Auto 8.2 % (0-4.4); Hematocrit 34.1 % (42.0-52.0); Hemoglobin 11.4 g/dL (14.0-18.0); Immature Granulocyte Absolute 0.13 K/mm3 (0.00-0.031); Immature Granulocyte Percent A 1.1 % (0-0.5); Lymphocytes Absolute Auto 1.49 K/mm3 (0.9-3.2); Mean Corpuscular HGB Conc 33.4 g/dl (32-36); Mean Corpuscular Hemoglobin 29.2 pg (26-34); Mean Corpuscular Volume 87.4 fl (80-100); Mean Platelet Volume 8.8 fl (7.4-10.4); Monocytes Absolute Auto 1.6 K/mm3 (0.1-0.6); Monocytes Percent Auto 13.5 % (2.6-8.5); Neutrophils Absolute Auto 7.3 K/mm3 (1.3-6.7); Neutrophils Percent Auto 63.7 % (45.5-73.1); Platelet Count Result 318 k/mm3 (150-375); Red Cell Distribution Width 13.6 % (11.5-14.5); White Blood Count 11.5 K/mm3 (4.5-10.0)
[2022-03-01 06:00] VITALS: BP 123/65; PULSE 120; RESP 18; TEMP 36.7; O2SAT 98
[2022-03-01 06:27] LABS: Alanine Aminotransferase 262 U/L (6-50); Albumin Level 2.8 g/dL (3.5-5.1); Alkaline Phosphatase 64 U/L (38-126); Anion Gap 1 mmol/L (8-16); Aspartate Amino Transferase 717 U/L (17-59); Bilirubin,Total 0.4 mg/dL (0.2-1.3); Blood Urea Nitrogen 10 mg/dL (9-20); Calcium 7.8 mg/dL (8.4-10.2); Carbon Dioxide 31 mmol/L (22-30); Chloride 104 mmol/L (98-107); Estimated CRCL calculation 165 ml/min; Estimated Glomerular Filt Rate > 60; Glucose 103 mg/dL (65-110); Potassium 3.6 mmol/L (3.4-5.0); Sodium 136 mmol/L (137-145)
[2022-03-01 06:55] LABS: Creatine Kinase 10409 U/L (55-170)
[2022-03-01] MEDS: FAMOTIDINE 20 MG/2 ML VIAL IV PUSH ×2 (08:42→21:30)
[2022-03-01] MEDS: FUROSEMIDE INJ 40 MG/4 ML VIAL IV PUSH ×2 (08:42→17:55)
[2022-03-01] MEDS: ENOXAPARIN 40 MG/0.4 ML SYRINGE SUB-Q (08:43)
[2022-03-01 09:07] VITALS: PULSE 103; O2SAT 97
--- NOTE | 2022-03-01 09:37 | PM.IMPN ---
Progress Note: A&P Assessment and Plan (1) Dysphagia: Code(s): R13.10 - Dysphagia, unspecified Status: Acute Assessment and Plan: Patient with acute onset of difficulty swallowing.? Bedside with concern with recommendation of chin tuck; MBS ordered MBS showing reduced laryngeal elevation and reduced tongue retraction with laryngeal penetration but no aspiration. He did receive Benadryl dose prior to the procedure. Brain MRI normal. Lumbar MRI also without concern but does show the rhabdo. Neuro consult Patient did much better with swallowing this morning. ST recommended level 6 diet with mildly thickened liquids. Diet was started today. Continue therapy. (2) Rhabdomyolysis: Code(s): M62.82 - Rhabdomyolysis Status: Acute Assessment and Plan: Patient presents with complaints of weakness and muscle pain and found to have rhabdomyolysis.? CRP 3.3. LDH 4800. Lactic acid 1.5. Etiology unclear but consider weightlifting and/or working at the [employer] and/or related to recent medications. No trauma, significant illness, tick bites, known toxin exposure, or other specific exposures Was on IV fluids with bicarb but became too alkalotic; Just on NS IV fluids now Total CK >16K and improved today AST/ALT elevated and are flat today Continue IV fluids and Lasix Will decrease IV fluid rate. -03/01/22 CK slowly improving. HIV, CRUZ pending. HBV & HCV negative. Added viral studies - Human herpes viruses, rubeola/measles, coxsackie, influenza A&B, chromatin antibody, anti brenda antibody, CRP, ESR ordered for AM labs. Will continue IVF. Bicarb elevated on BMP, so will decrease furosemide for AM. (3) Leukocytosis: Code(s): D72.829 - Elevated white blood cell count, unspecified Status: Acute Assessment and Plan: White cell count was 23K on admission.? Probably related to steroid use Repeat WBC 14 There is no evidence of infectious process. He is not on antibiotics.? Will continue to monitor.? (4) Transaminitis: Code(s): R74.01 - Elevation of levels of liver transaminase levels Status: Acute Assessment and Plan: Secondary to rhabdomyolysis.? Hepatitis panel negative. HIV negative Abdominal exam normal.? Levels are flat today -03/01/22 LFTs improving. Likely related to Rhabdomyolysis. (5) Hyponatremia: Code(s): E87.1 - Hypo-osmolality and hyponatremia Status: Acute Assessment and Plan: Na 127 on admission. Probably osmotic related to the elevated creatinine kinase.? He was started on IV fluids.? Sodium improving related to the IV fluids and that his creatinine kinase trends downward. (6) Muscle weakness: Code(s): M62.81 - Muscle weakness (generalized) Status: Acute Assessment and Plan: Patient with diffuse weakness but worse than his hip flexors. He had a back injury over a month ago though symptoms have resolved.? Able to stand and walk CT Thoracic and lumbar showing?moderate fluid in the presacral space, mild lumbar DDD. [place] related to his rhabdomyolysis. Lumbar MR showing no acute findings except does confirm the rhabdomyolysis. Check acetylcholine receptor antibody. (7) Rash: Code(s): R21 - Rash and other nonspecific skin eruption Status: Acute Assessment and Plan: Patient with diffuse rash as noted on physical exam with diffuse pruritis.? Benadryl was given PRN for itching but stopped due to somnolence? Continue Pepcid Lupus remains on the differential.? CRUZ pending. Chromatin antibody ordered for 716 AM labs. (8) Tachycardia: Code(s): R00.0 - Tachycardia, unspecified Status: Acute Assessment and Plan: Patient has been tachycardic 110-120 since admission.? D-dimer 8.5. LE venous doppler negative for DVT UE venous doppler negative for DVT but shows superficial vein thrombosis involving a branch of right basilic vein CTA chest negative for PE.? No ot
--- NOTE | 2022-03-01 10:20 | PCNWS ---
Weekly nutritional screen. Patient is tolerating current diet with adequate intake (75% or more on average). No weight loss reported. No nutritional needs at this time. Pt reports a good appetite and good hunger cues. Agree with diet orders.
--- NOTE | 2022-03-01 10:37 | WPDNEURCNPN ---
Assessment and Plan Assessment and plan (1) Muscle weakness: Code(s): M62.81 - Muscle weakness (generalized) Status: Acute (2) Rhabdomyolysis: Code(s): M62.82 - Rhabdomyolysis Status: Acute Plan history of back trauma followed by significant swelling of the lower extremities and rhabdomyolysis with elevated CPK though lumbar spine CT scan is negative for any bony trauma or with the MRI of this lumbar sacral spine only consistent with muscle trauma gradually making improvement able to ambulate will continue treatment as such Consult date: 03/01/22 Time Seen: 09:45 Reason for consult: lower extremity trauma HPI: Shemar Ga is a 26 year old male admitted to the hospital through the emergency room with 2 week history of progressive weakness and swelling of his both lower extremities in addition to the pain in his lower back of several weeks duration 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 basis he is not known to be allergic to any medication the review of system otherwise was un remarkable except that he had the history of drinking alcohol occasionally with the family at present is unemployed and initial examination in the emergency room was grossly nonfocal except the complaints of weakness to both lower extremities though he was able to ambulate initial vital signs were normal his initial CPK was greater than 16,000 CRP was 3.3 white blood cells were 23.2 his sodium was 127 with potassium 4.8 but BUN 18 and creatinine 0.7 hepatic enzymes were elevated with AST of 1397 and ALT of 533, the drug screen was negative except cannabinoids, was given cyclobenzaprine 10 mg along with diclofenac and prednisone 20 mg daily in the past what he was taking serum sodium has come up to 136 creatinine was only 0.50 calcium is 7.8 UA negative serology negative for RPR hepatitis and HIV, negative chest x-ray MRI of lumbar spine consistent with rhabdomyolysis with widespread increased T2 weighted signal intensity and contrast enhancement of the musculature with edema around the muscles but the discs are normal, brain MRI normal, chest CTA negative and barium swallow modified esophagram within functional limits ultrasound venous Doppler study with no DVT except superficial vein thrombosis involving a branch of right basilar vein and no lower extremities negative for DVT cervical spine CT scan negative Review of Systems Review of Systems: All systems reviewed & are unremarkable except as noted in HPI and below COUNTS INCLUDE 234 BEDS AT THE [facility] Past Medical History Medical History (Updated 02/26/22 @ 11:28 by Titus Peters MD) Healthy adult male Surgical History Surgical History (Updated 02/24/22 @ 22:25 by Airam Beltran PA-C) No history of previous surgery Family History Family History Grandparent Chronic obstructive pulmonary disease Social History Social History (Updated 02/24/22 @ 22:27 by Airam Beltran PA-C) Social History: Surrogate decision maker: Sherri Alvarez, grandmother. Code status: Full code. Smoking status: Never smoker Alcohol intake: never Alcohol use details: He used to drink occasionally on weekends but not even consistently then. He has had no alcohol in the last 3 to 4 weeks. He was never heavy drinker. Substance use type: marijuana Last use: Occasional use, socially and in moderation. Living
--- NOTE | 2022-03-01 11:55 | PCNSR ---
On 03/01/22, the student, Dustin Messer, provided care and completed [facility] documentation on this patient. I have reviewed the student's documentation and agree with the findings.
[2022-03-01 14:00] VITALS: BP 121/69; PULSE 115; RESP 16; TEMP 36.7; O2SAT 98
[2022-03-01 19:11] VITALS: BP 127/69; PULSE 114; RESP 18; TEMP 36.2; O2SAT 99
[2022-03-02] MEDS: SODIUM CHLORIDE 0.9% IV 1,000 ML 150 ML IV CONT ×2 (04:19→19:30)
[2022-03-02 04:40] VITALS: BP 113/47; PULSE 106; RESP 16; TEMP 36.2; O2SAT 100
--- NOTE | 2022-03-02 05:00 | ECG_ITS ---
Measurements Intervals [place] Rate: 104 P: 66 WY: 158 QRS: 82 QRSD: 118 T: 1 QT: 353 QTc: 466 Interpretive Statements SINUS TACHYCARDIA INTRAVENTRICULAR CONDUCTION DELAY MINIML Q WAVES- LATERAL LEADS INFERIOR INFARCT, AGE INDETERMINATE ST ELEVAION IN ANTEROLAT/HIGH LAT LEADS- PROBABLY EARLY REPOLARIZATION ABNORMALITY ABNORMAL ECG Electronically Signed On 03-02-2022 10:06:52 CDT by Raheem Cadena D.O.
--- NOTE | 2022-03-02 07:44 | PM.IMPN ---
Progress Note: A&P Assessment and Plan (1) Dysphagia: Code(s): R13.10 - Dysphagia, unspecified Status: Acute Assessment and Plan: Patient with acute onset of difficulty swallowing.? Bedside with concern with recommendation of chin tuck; MBS ordered MBS showing reduced laryngeal elevation and reduced tongue retraction with laryngeal penetration but no aspiration. He did receive Benadryl dose prior to the procedure. Brain MRI normal. Lumbar MRI also without concern but does show the rhabdo. Neuro consult Patient did much better with swallowing this morning. ST recommended level 6 diet with mildly thickened liquids. Diet was started today. Continue therapy. 03/02/22 CONTACT AGENT will signoff and patient will start regular diet with thin liquids. Dysphagia has resolved. (2) Rhabdomyolysis: Code(s): M62.82 - Rhabdomyolysis Status: Acute Assessment and Plan: Patient presents with complaints of weakness and muscle pain and found to have rhabdomyolysis.? CRP 3.3. LDH 4800. Lactic acid 1.5. Etiology unclear but consider weightlifting and/or working at the [employer] and/or related to recent medications. No trauma, significant illness, tick bites, known toxin exposure, or other specific exposures Was on IV fluids with bicarb but became too alkalotic; Just on NS IV fluids now Total CK >16K and improved today AST/ALT elevated and are flat today Continue IV fluids and Lasix Will decrease IV fluid rate. -03/01/22 CK slowly improving. HIV, CRUZ pending. HBV & HCV negative. Added viral studies - Human herpes viruses, rubeola/measles, coxsackie, influenza A&B, chromatin antibody, anti brenda antibody, CRP, ESR ordered for AM labs. Will continue IVF. Bicarb elevated on BMP, so will decrease furosemide for AM. 03/02/22 decided not to decrease furosemide as contraction alkalosis resolved. CK continues to slowly decrease. Will continue to monitor. Antimitochondrial ab ordered for AM labs. (3) Leukocytosis: Code(s): D72.829 - Elevated white blood cell count, unspecified Status: Acute Assessment and Plan: White cell count was 23K on admission.? Probably related to steroid use Repeat WBC 14 There is no evidence of infectious process. He is not on antibiotics.? Will continue to monitor.? (4) Transaminitis: Code(s): R74.01 - Elevation of levels of liver transaminase levels Status: Acute Assessment and Plan: Secondary to rhabdomyolysis.? Hepatitis panel negative. HIV negative Abdominal exam normal.? Levels are flat today -03/01/22 LFTs improving. Likely related to Rhabdomyolysis. (5) Hyponatremia: Code(s): E87.1 - Hypo-osmolality and hyponatremia Status: Acute Assessment and Plan: Na 127 on admission. Probably osmotic related to the elevated creatinine kinase.? He was started on IV fluids.? Sodium improving related to the IV fluids and that his creatinine kinase trends downward. (6) Muscle weakness: Code(s): M62.81 - Muscle weakness (generalized) Status: Acute Assessment and Plan: Patient with diffuse weakness but worse than his hip flexors. He had a back injury over a month prior to presentation though symptoms have resolved.?Able to stand and walk. CT Thoracic and lumbar showing?moderate fluid in the presacral space, mild lumbar DDD. [place] related to his rhabdomyolysis. Lumbar MR showing no acute findings except does confirm the rhabdomyolysis. Check acetylcholine receptor antibody. 03/02/22 Acetylcholine receptor antibody still pending. (7) Rash: Code(s): R21 - Rash and other nonspecific skin eruption Status: Acute Assessment and Plan: Patient with diffuse rash as noted on physical exam with diffuse pruritis.? Benadryl was given PRN for itching but stopped due to somnolence? Continue Pepcid Lupus remains on the differential.? CRUZ pending. Chromatin antibody ordered for 716 AM labs. (
[2022-03-02] MEDS: FUROSEMIDE INJ 40 MG/4 ML VIAL IV PUSH ×2 (08:34→17:11)
[2022-03-02] MEDS: FAMOTIDINE 20 MG/2 ML VIAL IV PUSH ×2 (08:34→20:39)
[2022-03-02] MEDS: ENOXAPARIN 40 MG/0.4 ML SYRINGE SUB-Q (08:35)
[2022-03-02 09:22] LABS: Alanine Aminotransferase 299 U/L (6-50); Albumin Level 3.1 g/dL (3.5-5.1); Alkaline Phosphatase 69 U/L (38-126); Anion Gap 3 mmol/L (8-16); Aspartate Amino Transferase 647 U/L (17-59); Bilirubin,Total 0.5 mg/dL (0.2-1.3); Blood Urea Nitrogen 11 mg/dL (9-20); CRP 1.4 mg/dL (<1.0); Calcium 7.9 mg/dL (8.4-10.2); Carbon Dioxide 28 mmol/L (22-30); Chloride 105 mmol/L (98-107); Estimated CRCL calculation 140 ml/min; Estimated Glomerular Filt Rate > 60; Glucose 109 mg/dL (65-110); Potassium 3.4 mmol/L (3.4-5.0); Sodium 136 mmol/L (137-145)
[2022-03-02 09:40] LABS: Creatine Kinase 8082 U/L (55-170)
[2022-03-02] MEDS: POTASSIUM CHLORIDE 20 MEQ TABLET 40 MEQ PO (11:01)
[2022-03-02 16:40] VITALS: BP 104/83; PULSE 112; RESP 14; TEMP 36.5; O2SAT 99
[2022-03-02 18:19] LABS: Basophils Absolute Auto 0.1 K/mm3 (0.0-0.1); Basophils Percent Auto 0.5 % (0.2-1.2); Eosinophils Absolute Auto 1.1 K/mm3 (0-0.3); Eosinophils Percent Auto 9.8 % (0-4.4); Hematocrit 36.6 % (42.0-52.0); Hemoglobin 11.8 g/dL (14.0-18.0); Immature Granulocyte Absolute 0.11 K/mm3 (0.00-0.031); Lymphocytes Absolute Auto 1.25 K/mm3 (0.9-3.2); Lymphocytes Percent Auto 11.3 % (18.3-44.2); Mean Corpuscular HGB Conc 32.2 g/dl (32-36); Mean Corpuscular Hemoglobin 29.4 pg (26-34); Mean Corpuscular Volume 91.3 fl (80-100); Monocytes Absolute Auto 1.4 K/mm3 (0.1-0.6); Monocytes Percent Auto 12.3 % (2.6-8.5); Neutrophils Absolute Auto 7.2 K/mm3 (1.3-6.7); Neutrophils Percent Auto 65.1 % (45.5-73.1); Platelet Count Result 362 k/mm3 (150-375); Red Blood Count 4.01 M/mm3 (4.6-6.20); Red Cell Distribution Width 13.8 % (11.5-14.5)
[2022-03-02 18:46] LABS: Erythrocyte Sedimentation Rate 15 mm/hr (0-20)
[2022-03-02 20:06] VITALS: BP 106/58; PULSE 98; RESP 18; TEMP 36.4; O2SAT 100
[2022-03-03] MEDS: SODIUM CHLORIDE 0.9% IV 1,000 ML 150 ML IV CONT ×4 (02:28→20:56)
[2022-03-03 05:31] VITALS: BP 125/66; PULSE 102; RESP 18; TEMP 36.6; O2SAT 100
[2022-03-03 06:33] LABS: Creatine Kinase 5131 U/L (55-170)
--- NOTE | 2022-03-03 07:44 | PM.IMPN ---
Progress Note: A&P Assessment and Plan (1) Dysphagia: Code(s): R13.10 - Dysphagia, unspecified Status: Acute Assessment and Plan: Patient with acute onset of difficulty swallowing.? Bedside with concern with recommendation of chin tuck; MBS ordered MBS showing reduced laryngeal elevation and reduced tongue retraction with laryngeal penetration but no aspiration. He did receive Benadryl dose prior to the procedure. Brain MRI normal. Lumbar MRI also without concern but does show the rhabdo. Neuro consult Patient did much better with swallowing this morning. ST recommended level 6 diet with mildly thickened liquids. Diet was started today. Continue therapy. 03/02/22 TELESALES MANAGER will signoff and patient will start regular diet with thin liquids. Dysphagia has resolved. tolerated regular diet (2) Rhabdomyolysis: Code(s): M62.82 - Rhabdomyolysis Status: Acute Assessment and Plan: Patient presents with complaints of weakness and muscle pain and found to have rhabdomyolysis.? CRP 3.3. LDH 4800. Lactic acid 1.5. Etiology unclear but consider weightlifting and/or working at the [employer] and/or related to recent medications. No trauma, significant illness, tick bites, known toxin exposure, or other specific exposures Was on IV fluids with bicarb but became too alkalotic; Just on NS IV fluids now Total CK >16K and improved today AST/ALT elevated and are flat today Continue IV fluids and Lasix Will decrease IV fluid rate. -03/01/22 CK slowly improving. HIV, CRUZ pending. HBV & HCV negative. Added viral studies - Human herpes viruses, rubeola/measles, coxsackie, influenza A&B, chromatin antibody, anti brenda antibody, CRP, ESR ordered for AM labs. Will continue IVF. Bicarb elevated on BMP, so will decrease furosemide for AM. 03/02/22 decided not to decrease furosemide as contraction alkalosis resolved. CK continues to slowly decrease. Will continue to monitor. Antimitochondrial ab ordered for AM labs. CK decreasing. Irma needs PCP as his insurance has changed. Possible discharge tomorrow. (3) Leukocytosis: Code(s): D72.829 - Elevated white blood cell count, unspecified Status: Acute Assessment and Plan: White cell count was 23K on admission.? Probably related to steroid use Repeat WBC 14 There is no evidence of infectious process. He is not on antibiotics.? Will continue to monitor.? (4) Transaminitis: Code(s): R74.01 - Elevation of levels of liver transaminase levels Status: Acute Assessment and Plan: Secondary to rhabdomyolysis.? Hepatitis panel negative. HIV negative Abdominal exam normal.? Levels are flat today -03/01/22 LFTs improving. Likely related to Rhabdomyolysis. (5) Hyponatremia: Code(s): E87.1 - Hypo-osmolality and hyponatremia Status: Acute Assessment and Plan: Na 127 on admission. Probably osmotic related to the elevated creatinine kinase.? He was started on IV fluids.? Sodium improving related to the IV fluids and that his creatinine kinase trends downward. (6) Muscle weakness: Code(s): M62.81 - Muscle weakness (generalized) Status: Acute Assessment and Plan: Patient with diffuse weakness but worse than his hip flexors. He had a back injury over a month prior to presentation though symptoms have resolved.?Able to stand and walk. CT Thoracic and lumbar showing?moderate fluid in the presacral space, mild lumbar DDD. [place] related to his rhabdomyolysis. Lumbar MR showing no acute findings except does confirm the rhabdomyolysis. Check acetylcholine receptor antibody. 03/02/22 Acetylcholine receptor antibody still pending. (7) Rash: Code(s): R21 - Rash and other nonspecific skin eruption Status: Acute Assessment and Plan: Patient with diffuse rash as noted on physical exam with diffuse pruritis.? Benadryl was given PRN for itching but stopped due to s
[2022-03-03] MEDS: ENOXAPARIN 40 MG/0.4 ML SYRINGE SUB-Q (08:19)
[2022-03-03] MEDS: FUROSEMIDE INJ 40 MG/4 ML VIAL IV PUSH ×2 (08:20→17:55)
[2022-03-03] MEDS: FAMOTIDINE 20 MG/2 ML VIAL IV PUSH ×2 (08:20→20:56)
[2022-03-03 14:00] VITALS: BP 125/68; PULSE 109; RESP 20; TEMP 36.2; O2SAT 100
[2022-03-03 17:44] LABS: SARS-CoV-2 RNA PCR Negative
[2022-03-03 22:00] VITALS: BP 107/54; PULSE 110; RESP 100; TEMP 36.1; O2SAT 100
[2022-03-04] MEDS: SODIUM CHLORIDE 0.9% IV 1,000 ML 150 ML IV CONT ×2 (05:23→13:16)
[2022-03-04 05:31] LABS: Basophils Absolute Auto 0.1 K/mm3 (0.0-0.1); Basophils Percent Auto 0.5 % (0.2-1.2); Eosinophils Percent Auto 10.2 % (0-4.4); Hematocrit 33.6 % (42.0-52.0); Hemoglobin 10.6 g/dL (14.0-18.0); Immature Granulocyte Absolute 0.08 K/mm3 (0.00-0.031); Immature Granulocyte Percent A 0.8 % (0-0.5); Lymphocytes Absolute Auto 1.38 K/mm3 (0.9-3.2); Lymphocytes Percent Auto 14.2 % (18.3-44.2); Mean Corpuscular HGB Conc 31.5 g/dl (32-36); Mean Corpuscular Hemoglobin 29.3 pg (26-34); Mean Corpuscular Volume 92.8 fl (80-100); Mean Platelet Volume 8.9 fl (7.4-10.4); Monocytes Absolute Auto 1.3 K/mm3 (0.1-0.6); Monocytes Percent Auto 13.6 % (2.6-8.5); Neutrophils Absolute Auto 5.9 K/mm3 (1.3-6.7); Neutrophils Percent Auto 60.7 % (45.5-73.1); Platelet Count Result 363 k/mm3 (150-375); Red Blood Count 3.62 M/mm3 (4.6-6.20); Red Cell Distribution Width 13.8 % (11.5-14.5); White Blood Count 9.7 K/mm3 (4.5-10.0)
[2022-03-04 05:45] LABS: Alanine Aminotransferase 270 U/L (6-50); Albumin Level 2.9 g/dL (3.5-5.1); Alkaline Phosphatase 62 U/L (38-126); Anion Gap 5 mmol/L (8-16); Aspartate Amino Transferase 375 U/L (17-59); Bilirubin,Total 0.3 mg/dL (0.2-1.3); Blood Urea Nitrogen 13 mg/dL (9-20); Calcium 7.9 mg/dL (8.4-10.2); Carbon Dioxide 28 mmol/L (22-30); Chloride 105 mmol/L (98-107); Estimated CRCL calculation 140 ml/min; Estimated Glomerular Filt Rate > 60; Glucose 112 mg/dL (65-110); Potassium 3.5 mmol/L (3.4-5.0); Sodium 138 mmol/L (137-145)
[2022-03-04 06:00] VITALS: BP 101/52; PULSE 96; RESP 16; TEMP 37.1; O2SAT 100
[2022-03-04 06:02] LABS: Creatine Kinase 3199 U/L (55-170)
[2022-03-04] MEDS: FUROSEMIDE INJ 40 MG/4 ML VIAL IV PUSH ×2 (08:17→16:42)
[2022-03-04] MEDS: ENOXAPARIN 40 MG/0.4 ML SYRINGE SUB-Q (08:17)
[2022-03-04] MEDS: FAMOTIDINE 20 MG/2 ML VIAL IV PUSH (08:17)
--- NOTE | 2022-03-04 10:54 | PC.NURSE ---
Spoke with Dr Vance regarding patient wanting a new PCP. Called care coordination and communicated this as well.
--- NOTE | 2022-03-04 12:39 | PCPTNOTE ---
Attempted PT evaluation, Fanny refused stating he was on the phone with insurance company. Fanny request therapist return later. Will Follow.
[2022-03-04 14:00] VITALS: BP 109/56; PULSE 101; RESP 18; TEMP 36.6; O2SAT 100
--- NOTE | 2022-03-04 14:04 | PCPTNOTE ---
Attempted PT evaluation, Patient refused stating he was too tired. Per patient, he is discharging today and feels safe going home. RN aware. Will follow.
--- NOTE | 2022-03-04 15:51 | PM.DS ---
DS: Admitting Diagnosis Discharge Date 03/04/22 Admitting Diagnosis Rhabdomyolysis DS: Discharge Diagnosis Discharge Diagnosis (1) Rhabdomyolysis: Code(s): M62.82 - Rhabdomyolysis Status: Acute Assessment and Plan: Patient presents with complaints of weakness and muscle pain and found to have rhabdomyolysis.? CRP 3.3. LDH 4800. Lactic acid 1.5. Etiology unclear but consider weightlifting and/or working at the [employer] and/or related to recent medications. No trauma, significant illness, tick bites, known toxin exposure, or other specific exposures Was on IV fluids with bicarb but became too alkalotic; Just on NS IV fluids now Total CK >16K and improved today AST/ALT elevated and are flat today Continue IV fluids and Lasix Will decrease IV fluid rate. -03/01/22 CK slowly improving. HIV, CRUZ pending. HBV & HCV negative. Added viral studies - Human herpes viruses, rubeola/measles, coxsackie, influenza A&B, chromatin antibody, anti brenda antibody, CRP, ESR ordered for AM labs. Will continue IVF. Bicarb elevated on BMP, so will decrease furosemide for AM. 03/02/22 decided not to decrease furosemide as contraction alkalosis resolved. CK continues to slowly decrease. Will continue to monitor. Antimitochondrial ab ordered for AM labs. 03/03/22 CK decreasing. Patient needs PCP as his insurance has changed. Possible discharge tomorrow. 03/04/[address] Shemar Monterroso, who has agreed to see the patient on 03/07/22 and will follow up the labs that have been ordered. Patient CK continues to trend down and is clinically back to baseline. He does have some weakness, so the patient has been scheduled for outpatient physical and occupational therapy. (2) Dysphagia: Code(s): R13.10 - Dysphagia, unspecified Status: Acute Assessment and Plan: Patient with acute onset of difficulty swallowing.? Bedside with concern with recommendation of chin tuck; MBS ordered MBS showing reduced laryngeal elevation and reduced tongue retraction with laryngeal penetration but no aspiration. He did receive Benadryl dose prior to the procedure. Brain MRI normal. Lumbar MRI also without concern but does show the rhabdo. Neuro consult Patient did much better with swallowing this morning. ST recommended level 6 diet with mildly thickened liquids. Diet was started today. Continue therapy. 03/02/22 BRICK PAVING CHECKER will signoff and patient will start regular diet with thin liquids. Dysphagia has resolved. 03/03/22 tolerated regular diet 03/04/22 This has been resolved since 03/02. (3) Leukocytosis: Code(s): D72.829 - Elevated white blood cell count, unspecified Status: Acute Assessment and Plan: White cell count was 23K on admission.? Probably related to steroid use Repeat WBC 14 There is no evidence of infectious process. He is not on antibiotics.? Will continue to monitor.? Leukocytosis resolved on 03/04/22. (4) Transaminitis: Code(s): R74.01 - Elevation of levels of liver transaminase levels Status: Acute Assessment and Plan: Secondary to rhabdomyolysis.? Hepatitis panel negative. HIV negative Abdominal exam normal.? Levels are flat today -03/01/22 LFTs improving. Likely related to Rhabdomyolysis. -03/03/22 LFTs continuing to improve. Liver function test have been ordered for 2 days after discharge. (5) Hyponatremia: Code(s): E87.1 - Hypo-osmolality and hyponatremia Status: Acute Assessment and Plan: Na 127 on admission. Probably osmotic related to the elevated creatinine kinase.? He was started on IV fluids.? Sodium improving related to the IV fluids and that his creatinine kinase trends downward. -03/04/22 hyponatremia has resolved. (6) Muscle weakness: Code(s): M62.81 - Muscle weakness (generalized) Status: Acute Assessment and Plan: Patient with diffuse weakness but worse than his hip flexors. He h
[2022-03-04] MEDS: POTASSIUM CHLORIDE 20 MEQ TABLET 40 MEQ PO (16:42)
[2022-03-05 22:33] LABS: Acetylchol Receptor Binding Ab <0.30 nmol/L
[2022-03-06 19:49] LABS: Varicella IgM Antibody <=0.90 (<=0.90)
[2022-03-07 14:06] LABS: CMV IgM Antibody <30.00 AU/mL (<30.00)
[2022-03-07 15:15] LABS: Mitochondrial (M2) Ab (IgG) <=20.0 U (<=20.0)
[2022-03-08 11:18] LABS: EBV Nuclear Ab Interpretation Past
[2022-03-08 21:28] LABS: HSV 1 IgM Screen Negative (Negative); HSV 2 IgM Screen Negative (Negative)
[2022-03-09 15:21] LABS: Chromatin Antibody <1.0; JO 1 Antibody <1.0
== END 2022-03-04 18:15 | disposition home or self-care (01) | DRG 558 ==
LOC: ANHED 18:34 → ANH3MED 19:18
PROVIDERS: Internal Medicine; Physician Assistant; Student in an Organized Health Care Education/Training Program; Admitting Provider Chiropractor; Emergency Provider Emergency Medicine; Visit Provider Family Medicine
DX: M62.82 Rhabdomyolysis (principal); I82.611 Acute embolism and thrombosis of superficial veins of right upper extremity; E87.1 Hypo-osmolality and hyponatremia; T38.0X5A Adverse effect of glucocorticoids and synthetic analogues, initial encounter; R13.10 Dysphagia, unspecified; D72.829 Elevated white blood cell count, unspecified; R74.01 Elevation of levels of liver transaminase levels; R21 Rash and other nonspecific skin eruption; R00.0 Tachycardia, unspecified; Z20.822 Contact with and (suspected) exposure to COVID-19
CPT/HCPCS: 36415; 70553; 71046; 71275; 72125; 72128; 72131; 72158; 80048; 80053; 80074; 80307; 81001; 82550; 82570; 83520; 83605; 83615; 83735; 83874; 83930; 83935; 84100; 84238; 84300; 84443; 85025; 85380; 85652; 86038; 86140; 86235; 86308; 86592; 86645; 86658; 86664; 86665; 86695; 86696; 86703; 86765; 86787; 87040; 92526; 92611; 93005; 93306; 93970; 96360; 97166; 97530; 97535; 99285; A9270; A9577; C9803; G0432; J1200; J1650; J1940; J7030; J7070; Q9967; U0003; U0005

== ENCOUNTER 2022-03-06 13:22 | Outpatient (CLI) | payer MEDICAID, SELFPAY ==
[2022-03-06 14:16] LABS: Alanine Aminotransferase 240 U/L (6-50); Albumin Level 3.8 g/dL (3.5-5.1); Alkaline Phosphatase 76 U/L (38-126); Anion Gap 8 mmol/L (8-16); Aspartate Amino Transferase 238 U/L (17-59); Bilirubin,Total 0.4 mg/dL (0.2-1.3); Blood Urea Nitrogen 13 mg/dL (9-20); Carbon Dioxide 28 mmol/L (22-30); Chloride 100 mmol/L (98-107); Estimated Glomerular Filt Rate > 60; Glucose 98 mg/dL (65-110); Potassium 3.8 mmol/L (3.4-5.0); Sodium 136 mmol/L (137-145)
[2022-03-06 14:30] LABS: Creatine Kinase 2782 U/L (55-170)
== END 2022-03-06 13:23 | disposition home or self-care (01) ==
LOC: ANHLAB 13:23
PROVIDERS: Visit Provider Family Medicine
DX: M62.82 Rhabdomyolysis (principal)
CPT/HCPCS: 36415; 80053; 82550

== ENCOUNTER 2022-03-20 14:19 | Outpatient (CLI) | payer MEDICAID, SELFPAY ==
[2022-03-20 15:42] LABS: Alanine Aminotransferase 41 U/L (6-50); Albumin Level 4.4 g/dL (3.5-5.1); Alkaline Phosphatase 68 U/L (38-126); Aspartate Amino Transferase 46 U/L (17-59); Bilirubin,Total 0.4 mg/dL (0.2-1.3); Creatine Kinase 261 U/L (55-170)
== END 2022-03-20 14:20 | disposition home or self-care (01) ==
PROVIDERS: PCP Family Medicine; Visit Provider Family Medicine
DX: M62.82 Rhabdomyolysis (principal)
CPT/HCPCS: 36415; 80076; 82550

== ENCOUNTER 2022-04-03 14:44 | Outpatient (CLI) | payer MEDICAID, SELFPAY ==
[2022-04-03 18:36] LABS: Basophils Absolute Auto 0.1 K/mm3 (0.0-0.1); Basophils Percent Auto 0.8 % (0.2-1.2); Eosinophils Absolute Auto 0.4 K/mm3 (0-0.3); Hematocrit 43.4 % (42.0-52.0); Immature Granulocyte Absolute 0.03 K/mm3 (0.00-0.031); Immature Granulocyte Percent A 0.3 % (0-0.5); Lymphocytes Absolute Auto 1.93 K/mm3 (0.9-3.2); Lymphocytes Percent Auto 22.3 % (18.3-44.2); Mean Corpuscular HGB Conc 32.3 g/dl (32-36); Mean Corpuscular Hemoglobin 28.9 pg (26-34); Mean Corpuscular Volume 89.7 fl (80-100); Monocytes Absolute Auto 1.4 K/mm3 (0.1-0.6); Monocytes Percent Auto 16.6 % (2.6-8.5); Neutrophils Absolute Auto 4.8 K/mm3 (1.3-6.7); Platelet Count Result 332 k/mm3 (150-375); Red Blood Count 4.84 M/mm3 (4.6-6.20); Red Cell Distribution Width 13.2 % (11.5-14.5); White Blood Count 8.7 K/mm3 (4.5-10.0)
[2022-04-03 18:46] LABS: Alanine Aminotransferase 39 U/L (6-50); Albumin Level 4.6 g/dL (3.5-5.1); Alkaline Phosphatase 64 U/L (38-126); Anion Gap 12 mmol/L (8-16); Aspartate Amino Transferase 102 U/L (17-59); Bilirubin,Total 0.4 mg/dL (0.2-1.3); Blood Urea Nitrogen 12 mg/dL (9-20); Calcium 9.2 mg/dL (8.4-10.2); Carbon Dioxide 26 mmol/L (22-30); Chloride 98 mmol/L (98-107); Creatine Kinase 1356 U/L (55-170); Estimated Glomerular Filt Rate > 60; Glucose 99 mg/dL (65-110); Sodium 136 mmol/L (137-145)
== END 2022-04-03 14:45 | disposition home or self-care (01) ==
LOC: ANHGOSHLAB 14:45
PROVIDERS: PCP Family Medicine; Visit Provider Family Medicine
DX: M62.82 Rhabdomyolysis (principal); D72.829 Elevated white blood cell count, unspecified; R74.8 Abnormal levels of other serum enzymes; E87.1 Hypo-osmolality and hyponatremia
CPT/HCPCS: 36415; 80053; 82550; 84443; 85025

== ENCOUNTER 2022-04-11 21:13 | Emergency (ER) | payer MEDICAID, SELFPAY ==
[2022-04-11 21:17] VITALS: BP 123/74; PULSE 77; RESP 18; TEMP 36.9; O2SAT 100
[2022-04-11 21:32] VITALS: BP 128/81
[2022-04-11 22:10] LABS: Basophils Absolute Auto 0.1 K/mm3 (0.0-0.1); Basophils Percent Auto 0.7 % (0.2-1.2); Eosinophils Absolute Auto 0.3 K/mm3 (0-0.3); Eosinophils Percent Auto 4.2 % (0-4.4); Hematocrit 39.2 % (42.0-52.0); Hemoglobin 12.8 g/dL (14.0-18.0); Immature Granulocyte Absolute 0.02 K/mm3 (0.00-0.031); Immature Granulocyte Percent A 0.3 % (0-0.5); Lymphocytes Absolute Auto 1.43 K/mm3 (0.9-3.2); Lymphocytes Percent Auto 18.7 % (18.3-44.2); Mean Corpuscular HGB Conc 32.7 g/dl (32-36); Mean Corpuscular Hemoglobin 29.2 pg (26-34); Mean Corpuscular Volume 89.3 fl (80-100); Mean Platelet Volume 9.4 fl (7.4-10.4); Monocytes Absolute Auto 1.1 K/mm3 (0.1-0.6); Monocytes Percent Auto 14.9 % (2.6-8.5); Neutrophils Absolute Auto 4.7 K/mm3 (1.3-6.7); Neutrophils Percent Auto 61.2 % (45.5-73.1); Platelet Count Result 320 k/mm3 (150-375); Red Blood Count 4.39 M/mm3 (4.6-6.20); Red Cell Distribution Width 13.1 % (11.5-14.5); White Blood Count 7.6 K/mm3 (4.5-10.0)
[2022-04-11 22:24] LABS: SARS-CoV-2 RNA PCR Negative
[2022-04-11 22:25] LABS: Alanine Aminotransferase 41 U/L (6-50); Albumin Level 4.2 g/dL (3.5-5.1); Alkaline Phosphatase 53 U/L (38-126); Anion Gap 8 mmol/L (8-16); Aspartate Amino Transferase 103 U/L (17-59); Bilirubin,Total 0.3 mg/dL (0.2-1.3); Blood Urea Nitrogen 16 mg/dL (9-20); Calcium 8.8 mg/dL (8.4-10.2); Carbon Dioxide 28 mmol/L (22-30); Chloride 100 mmol/L (98-107); Creatine Kinase 1248 U/L (55-170); Estimated CRCL calculation 140 ml/min; Estimated Glomerular Filt Rate > 60; Glucose 122 mg/dL (65-110); Potassium 3.9 mmol/L (3.4-5.0); Sodium 136 mmol/L (137-145)
--- NOTE | 2022-04-11 22:56 | ED.GENADULT ---
HPI - General Adult General Chief complaint: Unspecified Stated complaint: COVID exposure Time Seen by Provider: 04/11/22 21:53 Source: patient and old records reviewed Mode of arrival: ambulatory Limitations: no limitations History of Present Illness HPI narrative: Patient is a 26-year-old male who presents the ED for COVID testing. Patient reports he was recently around his grandmother who tested positive for COVID-19 today. He would like to be tested for COVID. He is currently asymptomatic and denies any fever, chills, cough, sore throat, rhinorrhea, congestion, nausea, chest pain, difficulty breathing. Patient does report he was recently admitted to the hospital here for 8 days for rhabdomyolysis. He has been following with his primary care doctor and last had his CK checked last week, at which point it had increased slightly from the previous lab value. Patient has been trying to drink plenty of water. He has been avoiding any strenuous activity, outdoor exposure. He states he has been doing well at home since his admission, but does have occasional myalgias. Related Data Allergies Allergy/AdvReac Type Severity Reaction Status Date / Time No Known Allergies Allergy Verified 04/11/22 21:22 Review of Systems Review of Systems: CONSTITUTIONAL: Denies fever, chills, or sweats. ENT: Denies rhinorrhea, congestion, sore throat. CARDIOVASCULAR: Denies chest pain. RESPIRATORY: Denies cough or dyspnea. GASTROINTESTINAL: Denies abdominal pain, nausea, vomiting. MUSCULOSKELETAL: Reports occasional myalgias. NEUROLOGIC: Denies headache, numbness, or weakness. All systems reviewed & are unremarkable except as noted in HPI and below PMFSH Past Medical History Medical History (Updated 04/11/22 @ 23:39 by Ariana Patton PA-C) Elevated liver enzymes Rhabdomyolysis Surgical History Surgical History No history of previous surgery Family History Family History Grandparent Chronic obstructive pulmonary disease Social History Social History Social History: Surrogate decision maker: Sherri Alvarez, grandmother. Code status: Full code. Smoking status: Never smoker Alcohol intake: never Alcohol use details: He used to drink occasionally on weekends but not even consistently then. He has had no alcohol in the last 3 to 4 weeks. He was never heavy drinker. Substance use type: marijuana Last use: Occasional use, socially and in moderation. Additional living arrangements comments: He is 1 of 10 children! Spiritual care concerns: No Exam Narrative: GENERAL: Well appearing, well-nourished, non-toxic, in no acute distress. HEAD: Normocephalic, atraumatic. NECK: Supple. No adenopathy, no masses. RESPIRATORY: Airway patent, respirations nonlabored. Clear to auscultation bilaterally, no rales, rhonchi, wheezing. CARDIOVASCULAR: Regular rate and rhythm without murmurs, rubs, or gallops. Peripheral pulses 2+ and equal bilaterally. ABDOMINAL: Soft, nontender, nondistended, no hepatosplenomegaly. Normoactive BS. MUSCULOSKELETAL: Moves all extremities. Strength/ROM intact without gross deformities. No edema. SKIN: Warm, dry, normal color. No rashes. NEURO: A&O X3. Speech clear. Cranial nerves II-XII grossly intact. Steady gait. No ataxic movements. PSYCHIATRIC: Appropriate mood and affect. Normal interaction. Course Vital Signs Vital signs: Vital Signs Temperature 98.4 F 04/11/22 21:17 Pulse Rate 77 04/11/22 21:17 Respiratory Rate 18 04/11/22 21:17 Blood Pressure 123/74 04/11/22 21:17 Pulse Oximetry 100 04/11/22 21:17 Oxygen Delivery Room Air 04/11/22 21:17 Temperature 98.4 F 04/11/22 21:17 Pulse Rate 77 04/11/22 21:17 Respiratory Rate 18 04/11/22 21:17 Blood Pressure 128/81 04/11/22 21:32 Pulse
[2022-04-11] MEDS: SODIUM CHLORIDE 0.9% IV 1,000 ML 999 ML IV CONT (23:05)
[2022-04-11 23:36] LABS: Appearance Urine Clear (Clear); Bilirubin Urine Negative (Negative); Blood Urine Negative (Negative); Color Urine Yellow (Yellow); Glucose Urine UA Negative (Negative); Ketones Urine Negative (Negative); Leukocyte Esterase Ur Negative LEU/UL (Negative); Nitrate Urine Negative (Negative); Protein Urine Negative (Negative); Specific Grav Ur 1.015 (1.001-1.035); Urobilinogen Urine 0.2 mg/dL (<2.0); pH Urine 7.5 (5.0-9.0)
[2022-04-11 23:38] LABS: Add Urine Microscopic? NO
[2022-04-11 23:51] VITALS: BP 120/79; PULSE 74; RESP 20; O2SAT 100
== END 2022-04-11 23:54 | disposition home or self-care (01) ==
PROVIDERS: Emergency Medicine; Physician Assistant; Emergency Provider Emergency Medicine; PCP Family Medicine
DX: Z20.822 Contact with and (suspected) exposure to COVID-19 (principal); R74.8 Abnormal levels of other serum enzymes
CPT/HCPCS: 36415; 80053; 81003; 82550; 85025; 96360; 99283; C9803; J7030; U0003; U0005

== ENCOUNTER 2022-04-25 11:08 | Outpatient (CLI) | payer MEDICAID, SELFPAY ==
[2022-04-25 19:55] LABS: Alanine Aminotransferase 29 U/L (6-50); Albumin Level 4.6 g/dL (3.5-5.1); Alkaline Phosphatase 51 U/L (38-126); Anion Gap 15 mmol/L (8-16); Aspartate Amino Transferase 72 U/L (17-59); Bilirubin,Total 0.2 mg/dL (0.2-1.3); Blood Urea Nitrogen 11 mg/dL (9-20); Carbon Dioxide 26 mmol/L (22-30); Chloride 100 mmol/L (98-107); Creatine Kinase 421 U/L (55-170); Estimated Glomerular Filt Rate > 60; Glucose 97 mg/dL (65-110); Potassium 4.3 mmol/L (3.4-5.0); Sodium 141 mmol/L (137-145)
== END 2022-04-25 11:09 | disposition home or self-care (01) ==
LOC: ANHGOSHLAB 11:11
PROVIDERS: PCP Family Medicine; Visit Provider Family Medicine
DX: R74.8 Abnormal levels of other serum enzymes (principal); M62.82 Rhabdomyolysis
CPT/HCPCS: 36415; 80053; 82550

== ENCOUNTER 2022-05-29 14:17 | Outpatient (CLI) | payer OTHER, SELFPAY ==
[2022-05-29 20:12] LABS: Alanine Aminotransferase 23 U/L (6-50); Albumin Level 4.8 g/dL (3.5-5.1); Alkaline Phosphatase 56 U/L (38-126); Anion Gap 11 mmol/L (8-16); Aspartate Amino Transferase 37 U/L (17-59); Bilirubin,Total 0.3 mg/dL (0.2-1.3); Blood Urea Nitrogen 13 mg/dL (9-20); Calcium 9.4 mg/dL (8.4-10.2); Carbon Dioxide 24 mmol/L (22-30); Chloride 104 mmol/L (98-107); Creatine Kinase 194 U/L (55-170); Estimated Glomerular Filt Rate > 60; Glucose 101 mg/dL (65-110); Potassium 3.9 mmol/L (3.4-5.0); Sodium 139 mmol/L (137-145)
== END 2022-05-29 14:18 | disposition home or self-care (01) ==
LOC: ANHGOSHLAB 14:18
PROVIDERS: PCP Family Medicine; Visit Provider Family Medicine
DX: M62.82 Rhabdomyolysis (principal); R74.8 Abnormal levels of other serum enzymes
CPT/HCPCS: 36415; 80053; 82550